=== PATIENT | female | born 1970 | race Caucasian/White ===

== ENCOUNTER 2022-07-25 00:52 | Day surgery (SDC) | payer BC, SELFPAY ==
[2022-07-06 10:16] VITALS: BMI 27.3
--- NOTE | 2022-07-23 19:54 | PM.HPGS ---
History of Present Illness History of Present Illness Consent: Risks, benefits, and alternatives have been discussed and questions answered. Patient agrees to proceed with procedure. Chief complaint: neoplasm screening Narrative: Marialuisa Mcclelland is a 51 year old female referred for colon cancer screening Review of Systems Review of Systems: All systems reviewed & are unremarkable except as noted in HPI and below [facility] Social History Social History Substance use type: does not use Living arrangements: with family Meds Home Medications and Allergies Home Medications Medication Instructions Recorded Confirmed Type norethindrone 1 mg-ethinyl 1 tablet PO DAILY 07/06/22 07/06/22 History estradiol 10 mcg (24)-iron 10 mcg(2) tablet (Lo Loestrin Fe) Allergies Allergy/AdvReac Type Severity Reaction Status Date / Time No Known Allergies Allergy Verified 07/06/22 10:14 Exam Const: General: alert Orientation/consciousness: patient oriented x3 Resp: Auscultation: clear to auscultation bilaterally Cardio: Rhythm: regular rhythm GI: GI Palp: Yes Soft to palpation and No Tenderness to palpation present (GI) Neuro: General: patient oriented x3 Assessment and Plan Assessment and plan (1) Colon cancer screening: Code(s): Z12.11 - Encounter for screening for malignant neoplasm of colon Status: Acute Assessment and Plan: Colonoscopy with possible biopsy or polypectomy or cautery or injection of substances.
[2022-07-25 06:46] VITALS: BP 123/81; PULSE 56; RESP 18; TEMP 36.6; O2SAT 56; BMI 27.9
[2022-07-25] MEDS: LACTATED RINGERS 1,000 ML 150 ML IV CONT (07:03)
--- NOTE | 2022-07-25 07:37 | P.PNAN_ITS ---
Anes - Initial Pre Proc Eval Procedure: Operation Date: 07/25/22 08:00 Proposed Procedures p Screening Colonoscopy - Mario Elizondo MD Date/Time: 07/25/22 07:37 Surgeon: Mario Elizondo MD Pre Op Diagnosis: neoplasm screening Patient Data Age: 51 Gender: F Height: 1.6 m Weight: 71.6 kg Last Vital Signs Temp 98 F 07/25/22 06:46 Pulse 56 L 07/25/22 06:46 Resp 18 07/25/22 06:46 BP 123/81 07/25/22 06:46 Pulse Ox 56 L 07/25/22 06:46 O2 Del Method Room Air 07/25/22 06:46 Allergies Allergy/AdvReac Type Severity Reaction Status Date / Time No Known Allergies Allergy Verified 07/06/22 10:14 Home Medications Medication Instructions Recorded Confirmed Type norethindrone 1 mg-ethinyl 1 tablet PO DAILY 07/06/22 07/06/22 History estradiol 10 mcg (24)-iron 10 mcg(2) tablet (Lo Loestrin Fe) Patient hx anesthesia problems: none Family hx anesthesia problems: none Results Review: All pre-operative results and documents have been reviewed as part of the pre- operative evaluation. [facility] Social History Social History Substance use type: does not use Living arrangements: with family Anes - Eval Final PreProcedure Day of Procedure 07/25/22 07:37 Patient weight: overweight Heart: regular rate and rhythm Lungs: clear to auscultation Airway: Mallampati scale class II Neurological: alert and oriented Last oral intake: >/= 8 hours ASA classification: II Emergent: no Anesthetic plan: proceed Anesthesia type and monitoring: general GIVS and standard monitoring Results Review: All pre-operative results and documents have been reviewed as part of the pre- operative evaluation. Informed Consent: The patient's anesthetic plan and its attendant risks and benefits were disc ussed with the patient/family/POA. Questions were solicited and answers provided to the satisfaction of the patient/family/POA.
[2022-07-25 08:16] VITALS: BP 95/64; PULSE 68; RESP 16; O2SAT 100
[2022-07-25 08:26] VITALS: BP 108/65; PULSE 68; RESP 18; O2SAT 100
[2022-07-25 08:36] VITALS: BP 131/84; PULSE 52; RESP 18; O2SAT 100
== END 2022-07-25 08:48 | disposition home or self-care (01) ==
PROVIDERS: PCP Internal Medicine; Visit Provider Internal Medicine Gastroenterology
PROC: 0DJD8ZZ Inspection of Lower Intestinal Tract, Via Natural or Artificial Opening Endoscopic (ICD-10-PCS; CPT 45378; principal; 2022-07-25 08:00)
DX: Z12.11 Encounter for screening for malignant neoplasm of colon (principal); K64.8 Other hemorrhoids
CPT/HCPCS: 45378; J2704; J7120